=== PATIENT | female | born 1955 | race Caucasian/White ===

== ENCOUNTER → 2021-09-03 | Outpatient (CLI) | payer MEDICARE, OTHER | LOC: KOH-I 14:30 | DX: R91.1 Solitary pulmonary nodule (principal) | CPT/HCPCS: 71250 ==

== ENCOUNTER → 2021-10-07 | Outpatient (CLI) | payer MEDICARE, OTHER ==
[2021-10-07 11:07] LABS: BUN/CREATININE RATIO 14 (0-10)
[2021-10-10 21:09] LABS: TESTOSTERONE, SERUM 303 ng/dL (264-916)
== END ==
LOC: MRI 08:55 → EDSEX 10:00
PROVIDERS: Surgery
DX: E27.8 Other specified disorders of adrenal gland (principal)
CPT/HCPCS: 36415; 74183; 80048; 82024; 84402; 84403; A9577

== ENCOUNTER → 2021-12-28 | Outpatient (CLI) | payer MEDICARE, OTHER | LOC: HEART 5 13:41 | DX: M34.9 Systemic sclerosis, unspecified (principal) | CPT/HCPCS: 94060; 94729 ==